=== PATIENT | male | born 1960 | race Caucasian/White ===

== ENCOUNTER 2017-01-02 07:10 | Outpatient (CLI) | payer OTHER | END 2017-01-02 07:11 | disposition home or self-care (01) | DX: E78.9 Disorder of lipoprotein metabolism, unspecified (principal) ==

== ENCOUNTER 2017-02-25 11:57 | Day surgery (SDC) | payer OTHER ==
[2017-02-25] MEDS ORDERED: LACTATED RINGERS 1,000 ML IV ONE (12:50)
[2017-02-25] MEDS ORDERED: MIDAZOLAM 2 MG/2 ML VIAL IVP ONE (13:44)
[2017-02-25] MEDS ORDERED: fentaNYL 250 MCG/5 ML VIAL IVP ONE (13:44)
== END 2017-02-25 11:58 | disposition home or self-care (01) ==
PROC: 0DJD8ZZ Inspection of Lower Intestinal Tract, Via Natural or Artificial Opening Endoscopic (ICD-10-PCS; principal; 2017-02-25 13:30)
DX: Z12.11 Encounter for screening for malignant neoplasm of colon (principal); K64.8 Other hemorrhoids; E78.00 Pure hypercholesterolemia, unspecified; E03.9 Hypothyroidism, unspecified; Z79.82 Long term (current) use of aspirin; J30.2 Other seasonal allergic rhinitis; M81.0 Age-related osteoporosis without current pathological fracture; Z82.49 Family history of ischemic heart disease and other diseases of the circulatory system; Z82.3 Family history of stroke
CPT/HCPCS: 45378; J7120

== ENCOUNTER 2017-06-03 08:00 | Outpatient (CLI) | payer OTHER | END 2017-06-03 08:01 | disposition home or self-care (01) | LOC: LAB.R 08:00 | PROVIDERS: ATTEND Nurse Practitioner Family | DX: R19.7 Diarrhea, unspecified (principal) | CPT/HCPCS: 87045; 87046; 87077 ==

== ENCOUNTER 2017-06-17 08:00 | Outpatient (CLI) | payer OTHER ==
[2017-06-22 13:11] LABS: TEST RESULT REPORT (())
== END 2017-06-17 08:01 | disposition home or self-care (01) ==
LOC: LAB.R 08:00
PROVIDERS: ATTEND Nurse Practitioner Family
DX: R19.7 Diarrhea, unspecified (principal)
CPT/HCPCS: 81599; 87045; 87046; 87077; 87177; 87209; 87329

== ENCOUNTER 2017-06-19 09:30 | Outpatient (CLI) | payer OTHER ==
[2017-06-20 20:31] LABS: TEST RESULT REPORT (())
== END 2017-06-19 23:59 | disposition home or self-care (01) ==
LOC: LAB.R 09:30
PROVIDERS: ATTEND Nurse Practitioner Family
DX: R19.7 Diarrhea, unspecified (principal)
CPT/HCPCS: 81599; 87177; 87209; 87329

== ENCOUNTER 2017-08-28 07:05 | Outpatient (CLI) | payer OTHER ==
[2017-08-28 10:50] LABS: CHOL/HDL RATIO 4.3 (<5.0); CHOLESTEROL 152 mg/dL; HDL CHOLESTEROL 35 mg/dL; LDL/HDL RATIO 2.7 (<3.6); TRIGLYCERIDES 113 mg/dL; VLDL CHOLESTEROL 23 mg/dL
== END 2017-08-28 07:06 | disposition home or self-care (01) ==
LOC: LAB.F 07:05
PROVIDERS: ATTEND Family Medicine
DX: E78.9 Disorder of lipoprotein metabolism, unspecified (principal); Z12.5 Encounter for screening for malignant neoplasm of prostate; E03.9 Hypothyroidism, unspecified
CPT/HCPCS: 36415; 80061; 84153; 84443

== ENCOUNTER 2019-02-04 07:07 | Outpatient (CLI) | payer OTHER ==
[2019-02-04 12:35] LABS: ALBUMIN 4.2 g/dL (3.2-5.5); ALBUMIN/GLOBULIN RATIO 1.5 (1.0-2.2); ALKALINE PHOSPHATASE 70 IU/L (42-121); ALT ALANINE AMINOTRANSFERASE 29 IU/L (10-60); AST ASPARTATE AMINOTRANSFERASE 20 IU/L (10-42); BILIRUBIN,TOTAL 0.7 mg/dL (0.2-1.0); BUN - BLOOD UREA NITROGEN 22 mg/dL (6-20); CALCIUM 9.1 mg/dL (8.5-10.3); CARBON DIOXIDE - CO2 27 mmol/L (21-32); CHLORIDE 103 mmol/L (101-111); CHOL/HDL RATIO 5.1 (<5.0); CHOLESTEROL 183 mg/dL; CREATININE 0.8 mg/dL (0.6-1.2); GFR - MDRD 100 (>89); GLUCOSE 103 mg/dL (70-100); HDL CHOLESTEROL 36 mg/dL; LDL CHOLESTEROL,CALCULATED 124 mg/dL; LDL/HDL RATIO 3.4 (<3.6); SODIUM 137 mmol/L (135-145); VLDL CHOLESTEROL 23 mg/dL
== END 2019-02-04 07:08 | disposition home or self-care (01) ==
LOC: LAB.F 07:07
PROVIDERS: ATTEND Internal Medicine
DX: E78.5 Hyperlipidemia, unspecified (principal); Z12.5 Encounter for screening for malignant neoplasm of prostate; E03.9 Hypothyroidism, unspecified
CPT/HCPCS: 36415; 80053; 80061; 83721; 84153; 84443

== ENCOUNTER 2019-02-25 12:55 | Outpatient (CLI) | payer OTHER ==
--- NOTE | 2019-02-26 09:36 | DEXA Report ---
Reason: OSTEOPOROSIS Procedure Date: 02/25/2019 Accession Number: [id number] / [id number] Procedure: DEX - Dexa Spine and/or Hip CPT Code: FULL RESULT: EXAM: Dexa Spine and/or Hip DATE: 02/25/2019 1:40 PM CLINICAL HISTORY: OSTEOPOROSIS TECHNIQUE: Dual energy x-ray absorptiometry (DXA) was performed on a [employer]. Regions measured are the AP Spine, femoral neck, and if needed forearm. COMPARISON: None. In accordance with the International Society for Clinical Densitometry (ISCD) guidelines, data from previous exams may be reanalyzed using current recommendations and techniques. This is done to allow a more accurate basis for comparison with the current study. FINDINGS: The data for the lumbar spine is as follows: BMD (g/cm/cm) T-SCORE Z-SCORE REGION L1 0.817 -2.9 -3.1 L2 0.870 -3.1 -3.3 L3 0.963 -2.3 -2.5 L4 0.898 -2.8 -3.1 TOTAL 0.887 -2.8 -3.0 NOTE: All evaluable vertebrae are used for classification The data for the hip is as follows: BMD (g/cm/cm) T-SCORE Z-SCORE REGION Neck 0.981 -0.7 -0.2 TOTAL 1.038 -0.4 -0.3 NOTE: The femoral neck or total proximal femur, whichever is lowest, is used for classification. IMPRESSION: THE WHO CLASSIFICATION BASED ON THE INTERNATIONAL REFERENCE STANDARD IS OSTEOPOROSIS. THE FRACTURE RISK IS HIGH. RECOMMENDATION: Patients with diagnosis of osteoporosis or osteopenia should have regular bone mineral density assessment. For those eligible for Medicare, routine testing is allowed once every 2 years. Testing frequency can be increased for patients who have rapidly progressing disease or for those who are receiving medical therapy to restore bone mass. COMMENT: World Health Organization (WHO) definitions for osteoporosis and osteopenia: NORMAL BMD: T-score at -1.0 or higher, fracture risk is low OSTEOPENIA BMD: T-score between -1.0 and -2.5, fracture risk is increased. OSTEOPOROSIS BMD: T-score at -2.5 or lower, fracture risk is high. National Osteoporosis Foundation recommends: 1. Obtain adequate dietary calcium (at least 1200 mg per day) and vitamin D (400-800 international units per day). 2. Participate, as appropriate, in regular weightbearing and muscle-strengthening exercise. 3. Avoid tobacco use and reduce alcohol and caffeine intake. 4. For more detailed information see the website at www.NOF.org.
== END 2019-02-25 12:56 | disposition home or self-care (01) ==
LOC: DI 12:55
PROVIDERS: ATTEND Internal Medicine
DX: M81.0 Age-related osteoporosis without current pathological fracture (principal)
CPT/HCPCS: 77080

== ENCOUNTER 2019-03-20 07:05 | Outpatient (CLI) | payer OTHER | END 2019-03-20 07:06 | disposition home or self-care (01) | LOC: LAB.F 07:05 | PROVIDERS: ATTEND Physician Assistant Medical | DX: M81.0 Age-related osteoporosis without current pathological fracture (principal) | CPT/HCPCS: 36415; 81599; 84402; 84403 ==

== ENCOUNTER 2021-12-13 14:16 | Outpatient (CLI) | payer OTHER ==
--- NOTE | 2021-12-13 16:58 | XRAY Report ---
PROCEDURE: Foot 3 View LT INDICATIONS: PAIN AND EDEMA 2ND MT HEAD TECHNIQUE: 3 views of the foot were acquired. COMPARISON: None FINDINGS: Bones: No fractures or dislocations. No suspicious bony lesions. Plantar calcaneal bone spur. Soft tissues: No tibiotalar joint effusion. Achilles tendon appears normal. IMPRESSION: No fracture. No acute osseous lesion. If there are persistent symptoms or continued clinical concern for pathology, then repeat plain film radiographs (7-10 days) or advanced imaging (CT, MR, bone scan) should be considered for further evaluation. Reviewed by: Liz Mosher MD, PhD on 12/13/2021 4:57 PM PST Approved by: Liz Mosher MD, PhD on 12/13/2021 4:57 PM PST Station ID: [id number]
== END 2021-12-13 14:17 | disposition home or self-care (01) ==
LOC: DI 14:16
PROVIDERS: ATTEND Podiatrist
DX: M79.672 Pain in left foot (principal); R60.0 Localized edema

== ENCOUNTER 2022-01-17 14:59 | Outpatient (CLI) | payer OTHER ==
--- NOTE | 2022-01-17 17:15 | MRI Report ---
PROCEDURE: Foot LT W/O INDICATIONS: PAIN AND EDEMA TND MP JOINT L FOOT TECHNIQUE: Noncontrast sagittal T1 spin echo and T2 fast spin echo with fat saturation, long-axis T1 spin echo a nd T2 fast spin echo with fat saturation, short-axis proton density fast spin echo and T2 fast spin e cho with fat saturation through the forefoot. COMPARISON: 12/13/2021. FINDINGS: Image quality: Excellent. Bones and joints: Surface skin marker is seen placed over plantar aspect of second MTP joint. Mild e yuli involving second proximal phalangeal base is seen. No acute fracture or dislocation. No metatars al stress fractures. No suspicious intraosseous lesion. Mild first MTP joint and first interphalangea l joint osteoarthritic changes are seen. No bony erosive changes. Soft tissues: The visualized plantar foot muscles demonstrate normal signal and bulk. Thickened flex or tendon of second toe at the level of second MTP joint and second metatarsal head is seen suggestiv e of tendinosis. No evidence of flexor extensor tendon tear. No soft tissue ganglion cysts. Small shelly unt of intermetatarsal bursal fluid between second and third metatarsal head is seen. Sagittal images demonstrate no evidence for plantar plate tears. IMPRESSION: 1. Suggestion of mild bony contusion involving second proximal phalangeal base. No fracture or disloc ation. No metatarsal stress fractures. 2. Mild soft tissue swelling surrounding second MTP joint. There is suggestion of very mild tendinosi s involving flexor tendon at the level of second metatarsal head/MTP joint. No extensor or flexor ten don rupture. No soft tissue ganglion cyst. Small amount of fluid distending intertarsal bursa between second and third metatarsal head suggestive of mild bursitis. Reviewed by: Julio Amaral MD on 01/17/2022 5:14 PM PST Approved by: Julio Amaral MD on 01/17/2022 5:14 PM PST Station ID: [id number]
== END 2022-01-17 15:00 | disposition home or self-care (01) ==
LOC: DI 14:59
PROVIDERS: ATTEND Podiatrist
DX: M79.672 Pain in left foot (principal); R60.0 Localized edema

== ENCOUNTER 2023-11-27 08:00 | Outpatient (CLI) | payer OTHER ==
--- NOTE | 2023-11-27 14:58 | XRAY Report ---
PROCEDURE: Tib/Fib BL INDICATIONS: PAIN IN RIGHT LOWER LEG TECHNIQUE: 2 views of the tibia and fibula were acquired. COMPARISON: None. FINDINGS: Bones: No fractures or dislocations. Normal mineralization. No visible periostitis. No suspicious b margaret lesions. Soft tissues: No suspicious soft tissue calcifications or masses. IMPRESSION: No visible bony abnormality. For persistent pain, consider 3 phase nuclear medicine bone scan of the lower legs. Reviewed by: Sharmaine Scott MD on 11/27/2023 2:56 PM PST Approved by: Sharmaine Scott MD on 11/27/2023 2:56 PM PST Station ID: [id number]
== END 2023-11-27 23:59 | disposition home or self-care (01) ==
LOC: DI.S 08:00
PROVIDERS: ATTEND Registered Nurse
DX: M79.661 Pain in right lower leg (principal)